=== PATIENT | female | born 1955 | race Caucasian/White ===

== ENCOUNTER 2018-07-23 11:34 | Emergency (ER) | payer BC ==
--- NOTE | 2018-07-23 12:17 | Emergency Department Record ---
History of Present Illness - General Chief complaint: Lower Extremity Pain Stated complaint: RT LEG PAIN Time Seen by Provider: 07/23/18 12:10 Source: Patient, RN notes reviewed Mode of Arrival: Ambulatory - History of Present Illness Initial comments: right lower leg bruise and visible just below the knee. Pain is intermittent and she doesn't recall bumping herself. Patient noticed discoloration yesterday. the pain started about one week ago. Onset/Timin -: Days(s) Location: Right, Lower Leg History of Same: No Radiation: None Consistency: Intermittent Improves with: Nothing Worsens with: Nothing Associated Symptoms: Denies other symptoms - Related Data Home Medications Medication Instructions Recorded Confirmed Last Taken Clindamycin HCl 150 mg PO BID 07/23/18 07/23/18 Unknown Levothyroxine Sodium [Synthroid] 50 mcg PO DAILY 07/23/18 07/23/18 Unknown Previous Rx's Medication Instructions Recorded Naproxen [Naprosyn] 500 mg PO BID #20 tablet 07/23/18 Allergies Allergy/AdvReac Type Severity Reaction Status Date / Time Penicillins Allergy HIVES Verified 07/23/18 11:56 Travel Screening - Travel/Exposure Within Last 30 Days Have you traveled within the last 30 days?: No Review of Systems Reviewed: No additional complaints except as noted below Constitutional: Reports: As per HPI. Denies: Chills, Fever, Malaise, Night sweats, Weakness, Weight change Eyes: Reports: As per HPI. Denies: Eye discharge, Eye pain, Photophobia, Vision change ENT: Reports: As per HPI. Denies: Congestion, Dental pain, Ear pain, Epistaxis, Hearing loss, Throat pain Respiratory: Reports: As per HPI. Denies: Cough, Dyspnea, Hemoptysis, Stridor, Wheezes Cardiovascular: Reports: As per HPI. Denies: Arrhythmia, Chest pain, Dyspnea on exertion, Edema, Murmurs, Orthopnea, Palpitations, Paroxysmal nocturnal dyspnea, Rheumatic Fever, Syncope Endocrine: Reports: As per HPI. Denies: Fatigue, Heat or cold intolerance, Polydipsia, Polyuria Gastrointestinal: Reports: As per HPI. Denies: Abdominal pain, Constipation, Diarrhea, Hematemesis, Hematochezia, Melena, Nausea, Vomiting Genitourinary: Reports: As per HPI. Denies: Abnormal menses, Discharge, Dyspareunia, Dysuria, Frequency, Hematuria, Incontinence, Retention, Urgency Musculoskeletal: Reports: As per HPI. Denies: Arthralgia, Back pain, Gout, Joint swelling, Myalgia, Neck pain Skin: Reports: As per HPI. Denies: Bruising, Change in color, Change in hair/nails, Lesions, Pruritus, Rash Neurological: Reports: As per HPI. Denies: Abnormal gait, Confusion, Headache, Numbness, Paresthesias, Seizure, Tingling, Tremors, Vertigo, Weakness Psychiatric: Reports: As per HPI. Denies: Anxiety, Auditory hallucinations, Depression, Homicidal thoughts, Suicidal thoughts, Visual hallucinations Hematological/Lymphatic: Reports: As per HPI. Denies: Anemia, Blood Clots, Easy bleeding, Easy bruising, Swollen glands Past Medical History - SOCIAL HISTORY Smoking Status: Never smoker Alcohol Use: None Drug Use: None - RESPIRATORY Hx Respiratory Disorders: No - CARDIOVASCULAR Hx Cardio Disorders: No - GI Hx GI Disorders: Yes Comment:: celiac - Hx Genitourinary Disorders: No - ENDOCRINE Hx Endocrine Disorders: Yes Comment:: raynauds shogrens - MUSCULOSKELETAL Hx Musculoskeletal Disorders: No - PSYCH Hx Psych Problems: No - HEMATOLOGY/ONCOLOGY Hx Hematology/Oncology Disorders: No Family Medical History Any Significant Family History?: No Physical Exam - General General Appearance: Alert, Oriented x3, Cooperative, No acute distress - Head Head exam: Normal inspection - Eye Eye exam: Normal appearance, PERRL Pupils: Normal accommodation - ENT ENT exam: Normal exam, Mucous membranes moist, Normal external ear exam, Normal orophraynx, TM's normal bilaterally Ear exam: Normal external inspection. negative: External canal tenderness Nasal Exam: Normal inspection. negative: Discharge, Sinus tenderness Mouth exam: Normal external inspection, Tongue normal Teeth exam: Normal inspection. negative: Dental caries Throat exam: Normal inspection. negative: Tonsillar erythema, Tonsillar exudate - Neck Neck exam: Normal inspection, Full ROM. negative: Tenderness - Respiratory Respiratory exam: Normal lung sounds bilaterally. negative: Respiratory distress - Cardiovascular Cardiovascular Exam: Regular rate, Normal rhythm, Normal heart sounds - GI/Abdominal GI/Abdominal exam: Soft, Normal bowel sounds. negative: Tenderness - Rectal Rectal exam: Deferred - exam: Deferred - Extremities Extremities exam: Normal inspection, Full ROM, Normal capillary refill, Tenderness (right lower lef pain just below knee medial side) - Back Back exam: Reports: Normal inspection, Full ROM. Denies: Muscle spasm, Rash noted, Tenderness - Neurological Neurological exam: Alert, Normal gait, Oriented X3, Reflexes normal - Psychiatric Psychiatric exam: Normal affect, Normal mood - Skin Skin exam: Dry, Intact, Normal color, Warm Medical Decision Making - Data Complexity MDM Data: Labs Ordered and/or Reviewed, X-Ray Ordered and/or Reviewed (venous dopler negative) - Lab Data Result diagrams: 07/23/18 12:25 07/23/18 12:25 Disposition Clinical Impression: Pain in right lower leg Contusion of leg, right Qualifiers: Encounter type: initial encounter Qualified Code(s): S80.11XA - Contusion of right lower leg, initial encounter Disposition: Home, Self-Care Condition: (1) Good Instructions: Contusion in Adults (ED) Additional Instructions: follow up with family in one week Prescriptions: Naproxen [Naprosyn] 500 mg PO BID #20 tablet Forms: Patient Portal Access Time of Disposition: 14:30 Quality - Quality Measures Quality Measures: N/A - Blood Pressure Screening Does Patient Have Any of the Following: No Blood Pressure Classification: Hypertensive Reading Systolic Measurement: 144 Diastolic Measurement: 78 Screening for High Blood Pressure: < First Hypertensive BP, F/U Documented > [G8950] First Hypertensive Follow-up Interventions: Referral to alternative/primary care provider.
[2018-07-23 12:32] LABS: ABSOLUTE NEUTROPHIL COUNT 2.85; BASO % 0.2 % (0-6); EOS % 0.5 % (0-6); GRAN % 64.9 % (47-80); HEMATOCRIT 39.2 % (35.0-47.0); LYMPH % 25.7 % (16-45); MEAN CELL VOLUME 92.9 fl (81-97); MEAN CORPUSCULAR HEMOGLOBIN 30.8 pg (27-33); MEAN CORPUSCULAR HGB CONC 33.2 g/dl (32-36); MONO % 8.7 % (0-9); PLATELET COUNT 288 K/uL (130-400); RED BLOOD COUNT 4.22 M/uL (3.80-5.40); WHITE BLOOD COUNT W/O DIFF 4.4 K/uL (4.2-12.2)
[2018-07-23 12:43] LABS: BLOOD UREA NITROGEN 10 mg/dL (8-23); CREATININE 0.6 mg/dL (0.5-0.9); EST GLOMERULAR FILTRATION RATE > 60 mL/min
[2018-07-23 12:45] LABS: GLUCOSE,RANDOM 83 mg/dL (74-109)
--- NOTE | 2018-07-25 06:24 | US VENOUS DOPPLER REPORT ---
EXAM: ULTRASOUND VENOUS DOPPLER LOWER EXT RT HISTORY: PAIN AND BRUISING OF RIGHT LOWER EXTREMITY. NO KNOWN INJURY. TECHNIQUE: Mendes-scale, color Doppler, and duplex Doppler evaluation of the deep venous structures of the right lower extremity are performed from the level of the external iliac vein through the calf veins. Additional imaging of the left external iliac, common femoral, and greater saphenous veins also performed. COMPARISON: None. FINDINGS: The external iliac vein, common femoral vein, greater saphenous vein, all levels of the superficial femoral vein, and popliteal vein are anechoic and completely compressible. Normal venous waveforms are noted at all levels and these waveforms are augmentable. The peroneal, posterior tibial, and anterior tibial veins appear patent throughout with normal augmentable venous waveforms. No evidence of deep venous thrombosis within the left external iliac, common femoral, and greater saphenous veins. IMPRESSION: NO EVIDENCE OF DEEP VENOUS THROMBOSIS WITHIN THE RIGHT LOWER EXTREMITY. JOB NUMBER: [id number] MTDD
== END 2018-07-23 14:46 | disposition home or self-care (01) ==
LOC: ER 11:34
DX: S80.11XA Contusion of right lower leg, initial encounter (principal); X58.XXXA Exposure to other specified factors, initial encounter
CPT/HCPCS: 80048; 84550; 85025; 85730; 99283; 99284

== ENCOUNTER 2018-08-15 16:48 | Emergency (ER) | payer BC ==
[2018-08-15] MEDS ORDERED: CLINDAMYCIN 150 MG CAP PO ONE (16:53)
[2018-08-15] MEDS ORDERED: Diph,Pert(Acell),Tet Vac 0.5 ML SYR IM ONE (16:53)
--- NOTE | 2018-08-15 17:00 | Emergency Department Record ---
History of Present Illness - General Chief complaint: Extremity Problem Stated complaint: INJURY TO RT HAND Time Seen by Provider: 08/15/18 16:53 Source: Patient, Family Mode of Arrival: Ambulatory Limitations: No limitations - History of Present Illness Initial comments: 62 yo female presents with an injury on her right hand. She was poked by chicken wire between the middle and ring finger around 1pm. The area has developed some redness and very mild swelling. She is right handed. She is unsure of when her last tetanus shot was but not likely in the last 5 years. She has full ROM. No numbness or tingling. She cleaned the wound several times at home. MD Complaint: Extremity pain Onset/Timin -: Hour(s) Location: Right, Hand Radiation: Distal Quality: Aching Consistency: Constant Improves with: Nothing Worsens with: Nothing Associated Symptoms: Other (redness and swelling) - Related Data Previous Rx's Medication Instructions Recorded Naproxen [Naprosyn] 500 mg PO BID #20 tablet 07/23/18 Clindamycin HCl 300 mg PO QID #28 capsule 08/15/18 Allergies Allergy/AdvReac Type Severity Reaction Status Date / Time Penicillins Allergy HIVES Verified 07/23/18 11:56 Travel Screening - Travel/Exposure Within Last 30 Days Have you traveled within the last 30 days?: No - Travel/Exposure Within Last Year Have you traveled outside the [place] in the last year?: No - Additonal Travel Details Have you been exposed to anyone with a communicable illness?: No - Travel Symptoms Symptom Screening: None Review of Systems Constitutional: Denies: Chills, Fever, Malaise, Weakness Eyes: Denies: Eye discharge, Vision change ENT: Denies: Congestion, Throat pain Respiratory: Denies: Cough, Dyspnea Cardiovascular: Denies: Chest pain Endocrine: Denies: Fatigue Gastrointestinal: Denies: Abdominal pain, Diarrhea, Nausea, Vomiting Genitourinary: Denies: Dysuria, Frequency Musculoskeletal: Reports: As per HPI, Arthralgia, Joint swelling. Denies: Back pain Skin: Reports: As per HPI, Bruising Neurological: Denies: Numbness, Tingling Psychiatric: Denies: Anxiety Hematological/Lymphatic: Denies: Easy bleeding, Easy bruising Past Medical History - SOCIAL HISTORY Smoking Status: Never smoker Alcohol Use: None Drug Use: None - RESPIRATORY Hx Respiratory Disorders: No - CARDIOVASCULAR Hx Cardio Disorders: No - GI Hx GI Disorders: Yes Comment:: celiac - Hx Genitourinary Disorders: No - ENDOCRINE Hx Endocrine Disorders: Yes Comment:: raynaudsclarkgrens - MUSCULOSKELETAL Hx Musculoskeletal Disorders: No - PSYCH Hx Psych Problems: No - HEMATOLOGY/ONCOLOGY Hx Hematology/Oncology Disorders: No Family Medical History Any Significant Family History?: No Physical Exam - General General Appearance: Alert, Oriented x3, Cooperative, No acute distress Limitations: No limitations - Head Head exam: Atraumatic, Normal inspection - Eye Eye exam: Normal appearance. negative: Conjunctival injection - ENT ENT exam: Normal exam Ear exam: Normal external inspection Nasal Exam: Normal inspection Mouth exam: Normal external inspection - Neck Neck exam: Normal inspection - Cardiovascular Peripheral Pulses: 2+: Radial (R) - Extremities Extremities exam: negative: Normal inspection Image of Hand: 1 - site of puncture about 2mm opening, no visible FB 2 - area of mild erythema and minimal swelling, full ROM without limitation or pain. No drainage. - Neurological Neurological exam: Alert, Oriented X3 - Psychiatric Psychiatric exam: Normal affect, Normal mood - Skin Skin exam: Abrasion Course Vital Signs 08/15/18 16:50 Pulse Rate 89 Respiratory 16 Rate Blood Pressure 149/98 Pulse Ox 97 - Reevaluation(s) Reevaluation #1: 08/15/18 17:01 The hand was cleaned on arrival Tetanus was ordered XR ordered Clindamycin provided in the ED 08/15/18 17:38 The XR was reviewed. No bony injury. No FB visible. We discussed puncture injuries, cellulitis, the treatment plan, follow up and reasons to immediately return 08/15/18 17:44 Rings were removed in the ED Disposition Disposition: Discharge Clinical Impression: Puncture wound, hand Qualifiers: Encounter type: initial encounter Foreign body presence: without foreign body Laterality: right Qualified Code(s): S61.431A - Puncture wound without foreign body of right hand, initial encounter Disposition: Home, Self-Care Condition: (1) Good Instructions: Cellulitis (ED) Additional Instructions: Keep the hand elevated to minimize swelling Take the antibiotic every 6 hours Keep your rings off until healed Return if the area is painful, fever, or worse Clean the wound with mild soap and water 3 times daily Prescriptions: Clindamycin HCl 300 mg PO QID #28 capsule Forms: Patient Portal Access Time of Disposition: 17:41 Quality - Quality Measures Quality Measures: N/A - Blood Pressure Screening Does Patient Have Any of the Following: No Blood Pressure Classification: Hypertensive Reading Systolic Measurement: 149 Diastolic Measurement: 98 Screening for High Blood Pressure: < Pre-Hypertensive BP, F/U Documented > [G8950] Pre-Hypertensive Follow-up Interventions: Referral to alternative/primary care provider.
--- NOTE | 2018-08-16 21:31 | RADIOLOGY REPORT ---
EXAM: HAND, RIGHT 3 VIEWS HISTORY: PATIENT POKED BY CHICKEN WIRE. TECHNIQUE: Three views right hand. COMPARISON: No prior right hand series. ENCOUNTER: Initial. FINDINGS: There is a metallic density consistent with a ring overlying the proximal phalanx of the third finger. There is also some soft tissue swelling involving the third finger and probably some soft tissue swelling overlying the region of the MCP joints. No definite fracture or opaque foreign body, aside from the patient's presumed ring overlying the third finger identified. Note is made of degenerative arthritis at several IP joints of the hand. IMPRESSION: 1. SOME SOFT TISSUE SWELLING. 2. ASIDE FROM THE PATIENT'S METALLIC RING, NO DEFINITE METALLIC FOREIGN BODY OR FRACTURE OF THE RIGHT HAND IDENTIFIED. 3. 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 J[facility]BER: [id number] [facility]
== END 2018-08-15 17:50 | disposition home or self-care (01) ==
LOC: ER 16:48
DX: S61.431A Puncture wound without foreign body of right hand, initial encounter (principal); W45.8XXA Other foreign body or object entering through skin, initial encounter
CPT/HCPCS: 90715; 96372; 99283; 99284